=== PATIENT | male | born 1935 | race Caucasian/White ===

== ENCOUNTER 2018-01-03 16:00 | Observation (INO) | payer MEDICARE, OTHER ==
[2018-01-03] MEDS ORDERED: Lorazepam 2 MG/ML VIAL ONE (16:23)
[2018-01-03] MEDS ORDERED: Nitroglycerin 2% Ointment 1 INCH/1 GM Packet ONE (16:23)
[2018-01-03 17:02] LABS: Mean Corpuscular HGB CONC 35.2 g/dL (32.0-36.0); Mean Corpuscular Hemoglobin 31.2 pg (27.0-31.0); Mean Corpuscular Volume 88.6 fl (80.0-94.0); Mean Platelet Volume 8.8 fL (7.4-10.4); Platelet Count 156 thou/uL (130-400); RBC Distribution Width 11.9 % (11.5-14.5); Red Blood Cell (RBC) Count 3.86 mill/uL (4.70-6.10); White Blood Cell (WBC) Count 5.2 thou/uL (4.8-10.8)
[2018-01-03 17:18] LABS: Band 1 % (5-11); Eosinophils 1 % (0-10); Lymphocytes 16 % (21-51); MDiff Complete? YES; Monocytes 9 % (0-10); Neutrophil 68 % (42-75); PLT Morphology Comment Appears Adequate; RBC Morphology Normal; Reactive Lymphocytes 5 % (0-10)
[2018-01-03 17:22] LABS: ALT (SGPT) 11 U/L (8-55); AST (SGOT) 13 U/L (5-34); Albumin 4.5 g/dL (3.4-4.8); Alkaline Phosphatase 151 U/L (40-150); Anion Gap 14 mmol/L (10-20); BUN (Urea Nitrogen) 23 mg/dL (8.4-25.7); Bilirubin, Total 0.5 mg/dL (0.2-1.2); CK (CPK) 84 U/L (30-200); Calc. Creatinine Clearance 0 mL/min (70-130); Carbon Dioxide 23 mmol/L (23-31); Chloride 108 mmol/L (98-107); Estimated GFR-MDRD 46; Globulin 3.3 g/dL (2.4-3.5); Glucose 97 mg/dL (83-110); Lipase 12 U/L (8-78); Potassium 3.6 mmol/L (3.5-5.1); Protein, Total 7.8 g/dL (5.8-8.1); Sodium 141 mmol/L (136-145)
[2018-01-03 17:24] LABS: CKMB 1.2 ng/mL (0-6.6); Troponin I Less than 0.010 ng/mL (< 0.028)
[2018-01-03] MEDS ORDERED: Nitroglycerin 0.4 MG TAB (25 Tab Bottle) SL PRN (17:50)
--- NOTE | 2018-01-03 17:53 | RAD ---
PORTABLE AP CHEST X-RAY 01/03/18 HISTORY: Chest pain. Patient states pain radiates to left shoulder. COMPARISON: 05/19/16 FINDINGS: Postsurgical change related to CABG are again noted. Cardiac silhouette and pulmonary vasculature are within normal limits. Lungs remain clear. There has been no interval change when compared to the kasi or exam. IMPRESSION: No acute cardiopulmonary process. POS: [facility]
[2018-01-03] MEDS ORDERED: Acetaminophen 325 MG TAB PO PRN (19:01)
[2018-01-03] MEDS ORDERED: Labetalol HCl 100 MG/20 ML VIAL SLOW IVP PRN (19:13)
[2018-01-03] MEDS: Heparin 5,000 UNITS/ML VIAL SC SCH (20:09)
[2018-01-03 20:32] LABS: Troponin I Less than 0.010 ng/mL (< 0.028)
[2018-01-03] MEDS ORDERED: Mirtazapine 15 MG TAB PO SCH (21:00)
[2018-01-03] MEDS ORDERED: Lithium Carbonate 150 MG CAP PO SCH (21:00)
[2018-01-03] MEDS ORDERED: Famotidine 20 MG TAB PO SCH (21:00)
[2018-01-03 22:00] VITALS: BMI 28.7
[2018-01-03 23:52] LABS: Troponin I Less than 0.010 ng/mL (< 0.028)
--- NOTE | 2018-01-04 01:16 | HP ---
PRIMARY CARE PHYSICIAN: Argelia Christie M.D. PRESENTING COMPLAINT: Chest pain. HISTORY OF PRESENT ILLNESS: Mr. Earnest Smith is an 82-year-old male with a past medical history of depression, panic attacks, hypertension, CAD status post CABG about 21 years ago and stent placement about 2 years ago who presents to the emergency room with complaints of chest pain. He reports an ep isode of chest pain around 3:00 p.m. this afternoon, lasting for about 15-20 minutes left-sided, radi ated down the arms. He was unable to further describe the pain; however, due to this pain, his decided to bring him to the hospital as a precaution. She reports that he has been battling depressi on and panic attacks for the past 2 months. He has a long history of depression and has been on medi cation, but over the past 2 months the panic attacks have gotten a lot worse and they have been follo wing a psychiatric on outpatient basis to try to control his attacks. His medications have been adju sted for the past several weeks and he was started on a new regimen few days ago. He currently denie s any chest pain, shortness of breath, palpitations, PND, orthopnea, lower extremity edema. At the e mergency room earlier he was diaphoretic and was anxious and he was given 2 mg of lorazepam with comp lete resolution of his symptoms. PAST MEDICAL HISTORY: Hypertension, CAD status post CABG and stent placement, hyperlipidemia, depres abelino, rectal cancer, anxiety disorder, GERD, and hyperlipidemia. PAST SURGICAL HISTORY: Colostomy placement, cholecystectomy. SOCIAL HISTORY: Does not smoke cigarettes. Drinks alcohol on very rare occasions. Does not use ill icit drugs. ALLERGIES: GLIMEPIRIDE. HOME MEDICATIONS: Reviewed. REVIEW OF SYSTEMS: A 12-point review of systems conducted and negative except as stated in HPI. PHYSICAL EXAMINATION: VITAL SIGNS: Blood pressure 156/78, respiratory rate 18, pulse rate 55, oxygen saturation 99% on justin m air, and temperature 98.3. GENERAL: Not in acute distress, lying comfortably in bed. HEENT: Normocephalic, atraumatic. Not pale, anicteric. PERRLA, EOMI. Moist mucous membrane. RESPIRATORY: Vesicular breath sounds bilaterally. No wheezes or rales. CARDIOVASCULAR: S1, S2 only. Regular rate and rhythm. No murmurs, rubs or gallops. ABDOMEN: Soft, tender, not distended. Colostomy in place. Bowel sounds normoactive. No hepatosple nomegaly. MUSCULOSKELETAL: No edema. PSYCHIATRIC: Depressed mood and affect. MUSCULOSKELETAL: No edema. SKIN: Warm, dry, well-perfused. No rashes or lesions. NEUROLOGIC: Alert and oriented. No focal deficits. LABORATORY DATA: CBC was largely unremarkable. CMP as well, apart from creatinine of 1.47 and seems to be his baseline. His last creatinine done here in 04/2016 was 1.42. EKG showed no signs of acut e ischemia. Chest x-ray showed no acute cardiopulmonary process. ASSESSMENT AND PLAN: 1. Chest pain: This seems to be noncardiac chest pain and could be from a panic attack; however, we will trend his cardiac enzymes and monitor on telemetry. Initial troponin was less than 0.01 and TS H was 1.0738. BNP was 125. We will monitor him overnight and if cardiac enzymes remain negative, he should be suitable for discharge and my plan for outpatient stress test. We will place on sublingua l nitroglycerin 0.4 mg p.r.n. for chest pain and also lorazepam p.r.n. for anxiety. 2. Coronary artery disease status post coronary artery bypass graft. We will resume his home medica tions once they have been confirmed. 3. Hypertension is currently relatively well controlled. We will monitor blood pressure closely and start his home medications once confirmed. 4. Depression/panic attack/anxiety disorder. We will also resume his home medications as well as lo razepam p.r.n. for anxiety/panic attacks. 5. Hyperlipidemia. Resume home medications. 6. History of rectal cancer: He is status post colostomy placement. CODE STATUS: FULL CODE.
[2018-01-04 05:04] LABS: Anion Gap 13 mmol/L (10-20); BUN (Urea Nitrogen) 24 mg/dL (8.4-25.7); Calc. Creatinine Clearance 39 mL/min (70-130); Calcium 9.6 mg/dL (7.8-10.44); Carbon Dioxide 22 mmol/L (23-31); Chloride 111 mmol/L (98-107); Estimated GFR-MDRD 42; Glucose 90 mg/dL (83-110); Potassium 3.6 mmol/L (3.5-5.1); Sodium 142 mmol/L (136-145)
[2018-01-04] MEDS: Lorazepam 2 MG/ML VIAL SLOW IVP PRN ×2 (05:21→14:20)
[2018-01-04 05:33] LABS: Band 1 % (5-11); Eosinophils 1 % (0-10); Hemoglobin 11.2 g/dL (14.0-18.0); Lymphocytes 13 % (21-51); MDiff Complete? YES; Mean Corpuscular HGB CONC 34.4 g/dL (32.0-36.0); Mean Corpuscular Hemoglobin 30.8 pg (27.0-31.0); Mean Corpuscular Volume 89.4 fl (80.0-94.0); Mean Platelet Volume 8.9 fL (7.4-10.4); Monocytes 23 % (0-10); Neutrophil 60 % (42-75); PLT Morphology Comment Appears Adequate; Platelet Count 134 thou/uL (130-400); RBC Distribution Width 11.8 % (11.5-14.5); RBC Morphology Normal; Reactive Lymphocytes 2 % (0-10); Red Blood Cell (RBC) Count 3.64 mill/uL (4.70-6.10); White Blood Cell (WBC) Count 5.6 thou/uL (4.8-10.8)
[2018-01-04] MEDS ORDERED: Gemfibrozil 600 MG TAB PO SCH (07:30)
[2018-01-04] MEDS: Heparin 5,000 UNITS/ML VIAL SC SCH ×2 (08:30→14:20)
[2018-01-04] MEDS ORDERED: Aspirin 325 MG TAB PO SCH (08:30)
[2018-01-04] MEDS ORDERED: Amlodipine 5 MG TAB PO SCH (09:00)
[2018-01-04] MEDS ORDERED: Atenolol 50 MG TAB PO SCH (09:00)
[2018-01-04] MEDS ORDERED: Venlafaxine XR 37.5 MG CAP PO SCH (09:00)
[2018-01-04 12:29] VITALS: BP 156/72; TEMP 98
[2018-01-04] MEDS ORDERED: ADENOSINE 60 MG/20 ML VIAL ONE (13:24)
--- NOTE | 2018-01-04 13:58 | NM ---
RADIONUCLIDE STRESS AND REST MYOCARDIAL PERFUSION SCAN WITH CT ATTENUATION CORRECTION AND SPECT IMAGI NG WITH LEFT VENTRICULAR WALL MOTION EVALUATION AND EJECTION FRACTION: HISTORY: Chest pain. FINDINGS: Adenosine protocol was used. There is heterogeneous uptake of radiotracer throughout the left ventric ular myocardium without focal perfusion defect apparent. QGS analysis of gated SPECT images shows no focal wall motion abnormalities. Left ventricular ejection fraction calculated at 65%. IMPRESSION: 1. Normal myocardial perfusion scan. 2. Normal LVEF. POS: [facility]
--- NOTE | 2018-01-04 15:11 | DIS ---
DATE OF ADMISSION: 01/03/2018 DATE OF DISCHARGE: 01/04/2018 DISCHARGE DIAGNOSES: 1. Noncardiac chest pain. 2. History of coronary artery disease. 3. Anxiety disorder. 4. History of depression. 5. Essential hypertension. 6. Diabetes mellitus type 2. 7. Rectal cancer. CONSULTATIONS: None. PROCEDURES: Nuclear stress test. This showed a normal ejection fraction and no evidence of reversib le ischemia. No EKG changes. HOSPITAL COURSE: Mr. Smith is an 82-year-old white male with the above history, who presents to the emergency department on 01/03/2018 with complaints of chest pain. He does have history of coronary disease, status post CABG about 21 years ago and stent placement about 2 years ago[address] He sees Dr. Waleska lam at [facility] for cardiology needs and sees Dr. Argelia Christie. He had an episode of chest pain around 3:00 p.m. on the day of admission, lasting 15 to 20 minutes, l eft-sided, sharp, shooting and radiating down his arms. He was brought to the hospital for evaluatio n. Workup was negative. He was subsequently admitted overnight for observation. HOSPITAL COURSE: The patient was seen and examined by Dr. Patel and placed on observation. Seria l cardiac biomarkers were obtained and were negative this morning. A nuclear stress test was ordered and completed earlier this morning. The report returned with a negative stress test. The patient's pain resolved and did seem more musculoskeletal in nature. He was subsequently discharged with outp atient followup. PHYSICAL EXAMINATION: The patient was seen and examined on the day of discharge. Discharge plan and disposition was discussed with the patient, his son, and his on the telephone, face to face. DISCHARGE MEDICATIONS: 1. Aspirin 81 mg daily. 2. Amlodipine 5 mg daily. 3. Atenolol 50 mg daily. 4. Gemfibrozil 600 mg p.o. b.i.d. before meals. 5. [place] 150 mg p.o. at bedtime. 6. Lovastatin 40 mg p.o. q.p.m. 7. Mirtazapine 15 mg p.o. at bedtime. 8. Omeprazole 20 mg p.o. daily. 9. Venlafaxine 37.5 mg p.o. daily. 10. Lisinopril 40 mg p.o. at bedtime. DISCHARGE CONDITION: Stable. DISPOSITION: Will be discharged home via private vehicle with family. DISCHARGE ACTIVITY: Per cardiopulmonary limits. DISCHARGE DIET: Heart healthy diabetic diet recommended. FOLLOWUP APPOINTMENTS: 1. Dr. Argelia Christie in [address] Dajuan Luu per her clinic schedule.
[2018-01-04] MEDS ORDERED: Atorvastatin Calcium 10 MG TAB PO SCH (17:00)
--- NOTE | 2018-01-06 13:33 | STRESS ---
Acquisition Time: 2018-01-04 11:39:47 Total Exercise Time: 00:04:00 Test Indications: CHEST PAIN Medications: Protocol: ADENOSINE Max HR: 093 BPM 68% of Pred: 136 BPM Max BP: 149/070 mmHG Max Work Load: 1.0 METS RESTING ECG: NORMAL SINUS RHYTHM AT 64 BPM WITH A RBBB SYMPTOMS: DIZZINESS, PAIN IN THROAT, HEART BURN ECTOPY STRESS: RARE PACS ECG STRESS: NO SIGNIFICANT CHANGES INTERPRETATION: AWAIT NUCLEAR IMAGES FOR DEFINITIVE DIAGNOSIS Confirmed by STACEY TIMMONS ([id number]) on 01/06/2018 1:32:31 PM Referred By: Koffi LING Confirmed By:STACEY TIMMONS
== END 2018-01-04 15:30 | disposition home or self-care (01) ==
LOC: ERS 16:00 → 2SW 19:19
PROVIDERS: ADMIT Internal Medicine; ATTEND Internal Medicine
DX: R07.89 Other chest pain (principal); I25.10 Atherosclerotic heart disease of native coronary artery without angina pectoris; F41.9 Anxiety disorder, unspecified; F32.9 Major depressive disorder, single episode, unspecified; I10 Essential (primary) hypertension; E11.9 Type 2 diabetes mellitus without complications; F41.0 Panic disorder [episodic paroxysmal anxiety]; E78.5 Hyperlipidemia, unspecified; Z85.048 Personal history of other malignant neoplasm of rectum, rectosigmoid junction, and anus; Z79.82 Long term (current) use of aspirin; Z79.899 Other long term (current) drug therapy; Z88.8 Allergy status to other drugs, medicaments and biological substances; Z95.1 Presence of aortocoronary bypass graft; Z95.5 Presence of coronary angioplasty implant and graft; Z93.3 Colostomy status
CPT/HCPCS: 71045; 78452; 80048; 80178; 82550; 82553; 83690; 83880; 84484 ×2; 85025; 93005; 93017; 96374; 96376; 99285; A9500; G0378; 36415; 80053; 84443; J0153; J1644; J2060

== ENCOUNTER 2019-01-18 15:50 | Inpatient (IN) | payer MEDICARE, OTHER ==
[~2019-01-18 15:50] MED LIST: Glycopyrrolate 0.2 MG/ML 5 ML SYRINGE ONE; ISOVUE-370 76%-LOCM 1 ML ONE; Lidocaine 1% PF 5 ML VIAL ONE; Ondansetron PF 4 MG/2 ML Vial ONE; PROPOFOL 200 MG/20 ML VIAL ONE; Rocuronium Bromide 10 MG/ML (10ML VIAL) ONE; Succinylcholine Chloride 20 MG/ML 10 ml SYRINGE FS ONE
[2019-01-18 16:16] LABS: Hemoglobin 12.9 g/dL (14.0-18.0); Mean Corpuscular HGB CONC 32.7 g/dL (32.0-36.0); Mean Corpuscular Hemoglobin 28.4 pg (27.0-31.0); Mean Corpuscular Volume 86.8 fL (78.0-98.0); RBC Distribution Width 11.7 % (11.5-14.5); Red Blood Cell (RBC) Count 4.54 mill/uL (4.70-6.10); White Blood Cell (WBC) Count 4.2 thou/uL (4.8-10.8)
[2019-01-18] MEDS ORDERED: Adacel (T-DAP) 0.5 ML SYRINGE ONE (16:16)
[2019-01-18 16:17] LABS: Mean Platelet Volume 10.1 fL (7.4-10.4); Platelet Count 101 thou/uL (130-400)
[2019-01-18 16:23] LABS: INR-International Normal Ratio 1.1; PTT 41.4 SEC (22.9-36.1); Prothrombin Time 14.6 SEC (12.0-14.7)
[2019-01-18 16:27] LABS: Lactic Acid 0.9 mmol/L (0.5-2.2)
[2019-01-18 16:28] LABS: Band 4 % (5-11); Lymphocytes 19 % (21-51); MDiff Complete? YES; Monocytes 11 % (0-10); Neutrophil 64 % (42-75); Platelet Morphology Comment Appears Decreased; RBC Morphology Normal; Reactive Lymphocytes 2 % (0-10)
[2019-01-18 16:31] LABS: ALT (SGPT) 21 U/L (8-55); AST (SGOT) 22 U/L (5-34); Albumin 4.5 g/dL (3.4-4.8); Alkaline Phosphatase 153 U/L (40-150); Anion Gap 15 mmol/L (10-20); BUN (Urea Nitrogen) 21 mg/dL (8.4-25.7); Bilirubin, Total 0.7 mg/dL (0.2-1.2); Calc. Creatinine Clearance 0 mL/min (70-130); Calcium 9.6 mg/dL (7.8-10.44); Carbon Dioxide 23 mmol/L (23-31); Chloride 109 mmol/L (98-107); Estimated GFR-MDRD 41; Globulin 3.3 g/dL (2.4-3.5); Glucose 106 mg/dL (83-110); Potassium 4.3 mmol/L (3.5-5.1); Protein, Total 7.8 g/dL (5.8-8.1); Sodium 143 mmol/L (136-145)
[2019-01-18] MEDS ORDERED: Fentanyl 100 MCG/2 ML VIAL ONE (16:44)
[2019-01-18] MEDS ORDERED: Famotidine/PF 20 mg/2ml Vial ONE (16:44)
[2019-01-18] MEDS ORDERED: Lidocaine 2% PF 5 ML VIAL ONE (16:46)
[2019-01-18] MEDS ORDERED: Bupivacaine HCl 0.5%/Epinephrine 1:200,000/PF 30 ml Vial ONE (16:46)
[2019-01-18 16:55] LABS: Acetaminophen Less than 6.0 mcg/mL (10.0-30.0); Alcohol Less than 10 mg/dL (Less than 10); Salicylate Less than 8.0 mg/dL (15.0-30.0)
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
[2019-01-18] MEDS ORDERED: traMADol HCl 50 MG TAB PO PRN (18:45)
[2019-01-18] MEDS ORDERED: HumaLOG 300 UNITS/3 ML VIAL SC PRN (18:45)
[2019-01-18] MEDS ORDERED: Dextrose 5% in Water 1,000 ML IV PRN (18:45)
[2019-01-18] MEDS ORDERED: Dextrose 50% Abboject 50 ML SYRINGE SLOW IVP PRN (18:45)
[2019-01-18] MEDS ORDERED: Morphine 4 MG/ML VIAL SLOW IVP PRN (18:45)
[2019-01-18] MEDS ORDERED: Ondansetron ODT 4 MG TAB PO PRN (18:45)
[2019-01-18] MEDS ORDERED: Ondansetron PF 4 MG/2 ML Vial IVP PRN (18:45)
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
[2019-01-18] MEDS: Sodium Chloride 0.9% 1,000 ML IV SCH (19:28)
[2019-01-18] MEDS: Morphine 2 MG/ML SYRINGE SLOW IVP PRN ×2 (19:46→22:37)
[2019-01-18] MEDS: hydrALAZINE 20 MG/ML VIAL SLOW IVP PRN (20:03)
[2019-01-18] MEDS: Famotidine/PF 20 mg/2ml Vial SLOW IVP SCH (21:03)
[2019-01-18] MEDS: Acetaminophen 1,000 MG in Premix Bag 1 BAG IVPB SCH (22:37)
[2019-01-18 23:03] VITALS: BMI 32.3
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
[2019-01-19] MEDS: Morphine 2 MG/ML SYRINGE SLOW IVP PRN (03:28)
[2019-01-19] MEDS: Acetaminophen 1,000 MG in Premix Bag 1 BAG IVPB SCH ×4 (05:33→23:37)
[2019-01-19] MEDS: Dexamethasone 4 mg/ml Vial SLOW IVP SCH ×3 (07:44→20:22)
[2019-01-19 07:50] LABS: Hemoglobin 11.9 g/dL (14.0-18.0); Mean Corpuscular Volume 87.8 fL (78.0-98.0); Mean Platelet Volume 10.2 fL (7.4-10.4); Platelet Count 80 thou/uL (130-400); RBC Distribution Width 11.7 % (11.5-14.5); White Blood Cell (WBC) Count 7.9 thou/uL (4.8-10.8)
[2019-01-19 08:02] LABS: Anion Gap 14 mmol/L (10-20); BUN (Urea Nitrogen) 16 mg/dL (8.4-25.7); Calc. Creatinine Clearance 41 mL/min (70-130); Calcium 8.8 mg/dL (7.8-10.44); Carbon Dioxide 22 mmol/L (23-31); Chloride 111 mmol/L (98-107); Estimated GFR-MDRD 42; Glucose 107 mg/dL (83-110); Potassium 3.8 mmol/L (3.5-5.1); Sodium 143 mmol/L (136-145)
[2019-01-19 08:37] LABS: Band 3 % (5-11); Eosinophils 1 % (0-10); Lymphocytes 11 % (21-51); MDiff Complete? YES; Monocytes 18 % (0-10); Neutrophil 65 % (42-75); Platelet Morphology Comment Appears Decreased; Polychromasia SLIGHT = 2-3 cells (100X) (0-2/hpf); Reactive Lymphocytes 2 % (0-10)
[2019-01-19] MEDS: Sodium Chloride 0.9% 1,000 ML IV SCH ×2 (08:45→22:53)
[2019-01-19] MEDS ORDERED: Prevnar 13-Val Conj/PF 0.5 ML SYRINGE IM ONE (09:00)
[2019-01-19] MEDS: hydrALAZINE 20 MG/ML VIAL SLOW IVP PRN (10:10)
[2019-01-19] MEDS: Lorazepam 2 MG/ML VIAL SLOW IVP PRN (10:48)
[2019-01-19] MEDS ORDERED: Metoprolol Tartrate 5 MG/5 ML VIAL IVP PRN (11:20)
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
[2019-01-19] MEDS: Famotidine/PF 20 mg/2ml Vial SLOW IVP SCH (20:22)
[2019-01-20] MEDS: Dexamethasone 4 mg/ml Vial SLOW IVP SCH ×2 (01:47→08:31)
[2019-01-20] MEDS: hydrALAZINE 20 MG/ML VIAL SLOW IVP PRN (05:40)
[2019-01-20 06:22] LABS: #Lymphocytes 0.6 thou/uL (1.20-3.40); #Monocytes 0.2 thou/uL (0.11-0.59); #Neutrophils 4.8 thou/uL (1.40-6.50); %Basophils 0.1 % (0.0-1.0); %Eosinophils 0.3 % (0.0-10.0); %Monocytes 2.8 % (0.0-10.0); %Neutrophils 86.8 % (42.0-75.0); Hemoglobin 12.5 g/dL (14.0-18.0); Mean Corpuscular HGB CONC 33.2 g/dL (32.0-36.0); Mean Corpuscular Hemoglobin 29.4 pg (27.0-31.0); Mean Corpuscular Volume 88.6 fL (78.0-98.0); Mean Platelet Volume 10.4 fL (7.4-10.4); Platelet Count 94 thou/uL (130-400); RBC Distribution Width 11.8 % (11.5-14.5); Red Blood Cell (RBC) Count 4.26 mill/uL (4.70-6.10); White Blood Cell (WBC) Count 5.5 thou/uL (4.8-10.8)
[2019-01-20 06:49] LABS: Anion Gap 15 mmol/L (10-20); BUN (Urea Nitrogen) 20 mg/dL (8.4-25.7); Calc. Creatinine Clearance 50 mL/min (70-130); Calcium 9.5 mg/dL (7.8-10.44); Carbon Dioxide 21 mmol/L (23-31); Chloride 112 mmol/L (98-107); Estimated GFR-MDRD 53; Glucose 132 mg/dL (83-110); Magnesium 1.7 mg/dL (1.6-2.6); Phosphorus 2.4 mg/dL (2.3-4.7); Potassium 3.8 mmol/L (3.5-5.1); Sodium 144 mmol/L (136-145)
[2019-01-20] MEDS: Gemfibrozil 600 MG TAB PO SCH ×2 (07:06→16:47)
[2019-01-20] MEDS ORDERED: Potassium Phosphate 15 MMOL in Sodium Chloride 0.9% 250 ML 250 ML IVPB SCH (07:30)
[2019-01-20] MEDS ORDERED: Magnesium 2 GM/50 ML 2 GM in Premix Bag 1 BAG IVPB SCH (07:30)
[2019-01-20] MEDS: Lorazepam 2 MG/ML VIAL SLOW IVP PRN ×2 (07:38→15:16)
[2019-01-20] MEDS: Amlodipine 5 MG TAB PO SCH (10:05)
[2019-01-20] MEDS: Atenolol 50 MG TAB PO SCH (10:05)
[2019-01-20] MEDS: Venlafaxine XR 37.5 MG CAP PO SCH (10:05)
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
[2019-01-20] MEDS: Atorvastatin Calcium 10 MG TAB PO SCH (16:47)
[2019-01-20] MEDS: Sodium Chloride 0.9% 1,000 ML IV SCH ×2 (18:03→21:47)
[2019-01-20] MEDS: Lisinopril 20 MG TAB PO SCH (20:15)
[2019-01-20] MEDS: Famotidine/PF 20 mg/2ml Vial SLOW IVP SCH (20:15)
[2019-01-20] MEDS: Lithium Carbonate 150 MG CAP PO SCH (20:15)
[2019-01-20] MEDS: Mirtazapine 15 MG TAB PO SCH (20:15)
[2019-01-20] MEDS: Aspirin 81 mg Enteric Coated Tablet PO SCH (20:15)
[2019-01-21 04:59] LABS: Anion Gap 13 mmol/L (10-20); BUN (Urea Nitrogen) 22 mg/dL (8.4-25.7); Calc. Creatinine Clearance 50 mL/min (70-130); Calcium 9.4 mg/dL (7.8-10.44); Carbon Dioxide 22 mmol/L (23-31); Chloride 115 mmol/L (98-107); Estimated GFR-MDRD 53; Glucose 109 mg/dL (83-110); Phosphorus 2.1 mg/dL (2.3-4.7); Potassium 3.7 mmol/L (3.5-5.1); Sodium 146 mmol/L (136-145)
[2019-01-21] MEDS: Gemfibrozil 600 MG TAB PO SCH ×2 (06:31→17:37)
[2019-01-21] MEDS ORDERED: Potassium Phosphate 15 MMOL in Sodium Chloride 0.9% 250 ML 250 ML IVPB SCH (07:15)
[2019-01-21] MEDS: Atenolol 50 MG TAB PO SCH (09:30)
[2019-01-21] MEDS: Amlodipine 5 MG TAB PO SCH (09:30)
[2019-01-21] MEDS: Aspirin 81 mg Enteric Coated Tablet PO SCH ×2 (09:30→21:12)
[2019-01-21] MEDS: Venlafaxine XR 37.5 MG CAP PO SCH (09:40)
[2019-01-21] MEDS ORDERED: traMADol HCl 50 MG TAB PO PRN (12:10)
[2019-01-21] MEDS ORDERED: Acetaminophen 500 MG TAB PO SCH (12:15)
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
[2019-01-21] MEDS: Atorvastatin Calcium 10 MG TAB PO SCH (17:37)
[2019-01-21] MEDS: Acetaminophen 500 MG TAB PO SCH (17:38)
[2019-01-21] MEDS: Mirtazapine 15 MG TAB PO SCH (21:11)
[2019-01-21] MEDS: Lithium Carbonate 150 MG CAP PO SCH (21:11)
[2019-01-21] MEDS: Lisinopril 20 MG TAB PO SCH (21:11)
[2019-01-22] MEDS: Acetaminophen 500 MG TAB PO SCH ×4 (01:19→17:22)
[2019-01-22] MEDS: Gemfibrozil 600 MG TAB PO SCH ×2 (06:06→17:54)
[2019-01-22] MEDS ORDERED: Lorazepam 1 MG TAB PO SCH (09:30)
[2019-01-22] MEDS: Venlafaxine XR 37.5 MG CAP PO SCH (09:34)
[2019-01-22] MEDS: Aspirin 81 mg Enteric Coated Tablet PO SCH (09:34)
[2019-01-22] MEDS: Amlodipine 5 MG TAB PO SCH (09:35)
[2019-01-22] MEDS: Atenolol 50 MG TAB PO SCH (09:35)
[2019-01-22] MEDS ORDERED: ALPRAZolam 0.25 MG TAB PO PRN (12:13)
[2019-01-22] MEDS: Atorvastatin Calcium 10 MG TAB PO SCH (17:22)
[2019-01-22] MEDS: ALPRAZolam 0.25 MG TAB PO PRN (17:43)
[2019-01-22] MEDS: Mirtazapine 15 MG TAB PO SCH (20:38)
[2019-01-22] MEDS: Lisinopril 20 MG TAB PO SCH ×2 (20:47→21:35)
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
[2019-01-23] MEDS: hydrALAZINE 20 MG/ML VIAL SLOW IVP PRN ×2 (00:08→06:08)
[2019-01-23] MEDS: Acetaminophen 500 MG TAB PO SCH ×6 (00:12→23:32)
[2019-01-23] MEDS: Gemfibrozil 600 MG TAB PO SCH ×2 (06:21→17:13)
[2019-01-23] MEDS ORDERED: OLANZAPINE 7.5 MG PO SCH (09:00)
[2019-01-23] MEDS: Amlodipine 5 MG TAB PO SCH (10:26)
[2019-01-23] MEDS: Atenolol 50 MG TAB PO SCH (10:26)
[2019-01-23] MEDS: Aspirin Chewable 81 MG TAB PO SCH (10:27)
[2019-01-23] MEDS: OLANZapine 5 MG TAB PO SCH (10:27)
[2019-01-23] MEDS: Venlafaxine XR 37.5 MG CAP PO SCH (10:28)
[2019-01-23] MEDS: ALPRAZolam 0.25 MG TAB PO PRN ×2 (10:28→16:12)
[2019-01-23] MEDS ORDERED: ALPRAZolam 0.5 MG TAB PO PRN (16:21)
[2019-01-23] MEDS: Atorvastatin Calcium 10 MG TAB PO SCH (18:35)
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
[2019-01-23] MEDS: Lisinopril 20 MG TAB PO SCH (21:14)
[2019-01-23] MEDS: Mirtazapine 15 MG TAB PO SCH (21:25)
[2019-01-24] MEDS: Acetaminophen 500 MG TAB PO SCH ×4 (05:45→23:19)
[2019-01-24] MEDS: Gemfibrozil 600 MG TAB PO SCH ×2 (05:50→18:04)
[2019-01-24] MEDS: Aspirin Chewable 81 MG TAB PO SCH (08:47)
[2019-01-24] MEDS: Venlafaxine HCl XR 150 MG CAP PO SCH (08:47)
[2019-01-24] MEDS: Atenolol 50 MG TAB PO SCH (08:47)
[2019-01-24] MEDS: Amlodipine 5 MG TAB PO SCH (08:48)
[2019-01-24] MEDS: OLANZapine 5 MG TAB PO SCH (08:48)
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
[2019-01-24] MEDS: Atorvastatin Calcium 10 MG TAB PO SCH (18:04)
[2019-01-24] MEDS: Mirtazapine 15 MG TAB PO SCH (20:34)
[2019-01-24] MEDS: Lisinopril 20 MG TAB PO SCH (20:34)
[2019-01-25] MEDS: Acetaminophen 500 MG TAB PO SCH ×4 (06:23→23:24)
[2019-01-25] MEDS: Gemfibrozil 600 MG TAB PO SCH ×2 (06:54→15:50)
[2019-01-25] MEDS: Venlafaxine HCl XR 150 MG CAP PO SCH (08:22)
[2019-01-25] MEDS: OLANZapine 5 MG TAB PO SCH (08:22)
[2019-01-25] MEDS: Atenolol 50 MG TAB PO SCH (08:22)
[2019-01-25] MEDS: Aspirin Chewable 81 MG TAB PO SCH (08:23)
[2019-01-25] MEDS: Amlodipine 5 MG TAB PO SCH (08:23)
[2019-01-25] MEDS: ALPRAZolam 0.25 MG TAB PO PRN (17:52)
[2019-01-25] MEDS: Atorvastatin Calcium 10 MG TAB PO SCH (17:52)
[2019-01-25] MEDS: Mirtazapine 15 MG TAB PO SCH (21:18)
[2019-01-25] MEDS: Lisinopril 20 MG TAB PO SCH (21:18)
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
[2019-01-26] MEDS: Acetaminophen 500 MG TAB PO SCH ×3 (06:00→17:33)
[2019-01-26] MEDS: Gemfibrozil 600 MG TAB PO SCH ×2 (06:34→16:31)
[2019-01-26] MEDS: Aspirin Chewable 81 MG TAB PO SCH (09:13)
[2019-01-26] MEDS: ALPRAZolam 0.25 MG TAB PO PRN ×2 (09:13→15:25)
[2019-01-26] MEDS: Venlafaxine HCl XR 150 MG CAP PO SCH (09:13)
[2019-01-26] MEDS: Atenolol 50 MG TAB PO SCH (09:13)
[2019-01-26] MEDS: Amlodipine 5 MG TAB PO SCH (09:14)
[2019-01-26 16:25] VITALS: BP 101/63; TEMP 98.5
[2019-01-26] MEDS: OLANZapine 5 MG TAB PO SCH ×2 (16:30)
[2019-01-26] MEDS: Atorvastatin Calcium 10 MG TAB PO SCH (17:32)
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
== END 2019-01-26 18:29 | DRG 581 ==
LOC: ERS 15:50 → SDC 18:21 → CCU 18:40 → SJJU 01-19 12:54
PROVIDERS: ADMIT Surgery; ATTEND Surgery
PROC: 0CJS8ZZ Inspection of Larynx, Via Natural or Artificial Opening Endoscopic (ICD-10-PCS; principal; 2019-01-18)
PROC: 0BJ08ZZ Inspection of Tracheobronchial Tree, Via Natural or Artificial Opening Endoscopic (ICD-10-PCS; 2019-01-18)
PROC: 0DJ08ZZ Inspection of Upper Intestinal Tract, Via Natural or Artificial Opening Endoscopic (ICD-10-PCS; 2019-01-18)
PROC: 0KQ20ZZ Repair Right Neck Muscle, Open Approach (ICD-10-PCS; 2019-01-18)
DX: S16.2XXA Laceration of muscle, fascia and tendon at neck level, initial encounter (principal); F32.9 Major depressive disorder, single episode, unspecified; X78.1XXA Intentional self-harm by knife, initial encounter; I25.10 Atherosclerotic heart disease of native coronary artery without angina pectoris; E11.9 Type 2 diabetes mellitus without complications; E78.5 Hyperlipidemia, unspecified; I10 Essential (primary) hypertension; F41.9 Anxiety disorder, unspecified; I87.8 Other specified disorders of veins; Z79.899 Other long term (current) drug therapy; Z79.82 Long term (current) use of aspirin; Z85.048 Personal history of other malignant neoplasm of rectum, rectosigmoid junction, and anus; Z93.3 Colostomy status; Z90.49 Acquired absence of other specified parts of digestive tract; Z95.1 Presence of aortocoronary bypass graft; Z88.8 Allergy status to other drugs, medicaments and biological substances
CPT/HCPCS: 36415; 36416; 70498; 80048; 80053; 80307; 83605; 83735; 84100; 85025; 85610; 85730; 86850; 86900; 86901; 90715; 93005; 93010; G0390; J0131; J0360; J0670; J1100; J2001; J2060; J2270; J2405; J2704; J3010; J3475; J7050; Q9966; S0028